=== PATIENT | female | born 1965 | race Caucasian/White ===

== ENCOUNTER 2019-04-07 09:13 | Emergency (ER) | payer OTHER ==
--- NOTE | 2019-04-07 10:16 | ED Physician Documentation ---
History of Present Illness - Stated complaint Stated Complaint: L ARM PX - Chief complaint Chief Complaint: Ext Problem - History obtained from History obtained from: Patient, Family - History of Present Illness Timing: Yesterday - Additonal information Additional information: 54-year-old female has developed some pain in her left arm and shoulder over the past 2 days. She states that when she moves her arm a certain way she feels the same pain more significantly and she does feel that her arm is a bit weaker than normal. She denies any excessive repetitive activity and she does have a prior history of bilateral carpal tunnel. She does have some pain in her neck and she does have an increase in her symptoms with exertion. She is concerned about the possibility of something wrong with her heart as she has a history of hypertension and elevated cholesterol. Review of Systems Constitutional: denies: Fever, Chills Eyes: denies: Decreased vision Ears: denies: Ear pain Nose: denies: Rhinorrhea / runny nose, Congestion Throat: denies: Sore throat Cardiac: denies: Chest pain / pressure, Palpitations Respiratory: denies: Dyspnea, Cough GI: denies: Abdominal Pain, Nausea, Vomiting : denies: Dysuria, Frequency Skin: denies: Rash Musculoskeletal: reports: Neck pain, Extremity pain. denies: Back pain Neurologic: reports: Focal weakness. denies: Generalized weakness, Numbness, Difficulty speaking PD PAST MEDICAL HISTORY - Past Medical History Cardiovascular: Hypertension, High cholesterol Respiratory: None Neuro: Migraines Endocrine/Autoimmune: HyPOthyroidism GI: Ulcers [employer]: None : None Psych: None Musculoskeletal: Other Derm: None Other Past Medical History: sciatica - Past Surgical History Past Surgical History: No - Present Medications Home Medications: Ambulatory Orders Medication Instructions Recorded Confirmed Levothyroxine Sodium [Synthroid] 50 mcg PO DAILY 04/07/19 04/07/19 Lisinopril 20 mg PO DAILY 04/07/19 04/07/19 - Allergies Allergies/Adverse Reactions: Allergies Allergy/AdvReac Type Severity Reaction Status Date / Time No Known Drug Allergies Allergy Verified 04/07/19 09:27 - Social History Does the pt smoke?: No Smoking Status: Never smoker Does the pt drink ETOH?: Yes ETOH Use: Liquor Does the pt have substance abuse?: No - Immunizations Immunizations are current?: Yes - POLST Patient has POLST: No PD ED PE NORMAL - Vitals Vital signs reviewed: Yes (hypertensive m) - General General: Alert and oriented X 3, No acute distress, Well developed/nourished - HEENT HEENT: Atraumatic, PERRL, EOMI - Neck Neck: Supple, no meningeal sign, No bony TTP, Other (There is no increase in the pain associated with axial compression of the spine by compression on the vertex. There is some tenderness to the para spinous muscles on the left neck. 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, No motor deficit, No sensory deficit, Normal speech Eye Opening: Spontaneous Motor: Obeys Commands Verbal: Oriented GCS Score: 15 - Psych Psych: Normal mood, Normal affect Results - Vitals Vitals: Vital Signs - 24 hr 04/07/19 04/07/19 04/07/19 09:24 09:49 11:22 Temperature 36.3 C L 36.6 C 37.0 C Heart Rate 85 74 72 Respiratory 19 16 14 Rate Blood Pressure 158/93 H 148/80 H 133/85 H O2 Saturation 99 97 94 Oxygen O2 Source Room air - EKG (time done) 0931 Rate: Rate (enter#) (74) Rhythm: NSR QRS: LVH Compare to prior EKG: Old EKG unavailable Computer interpretation: Agree with computer - Labs Labs: Laboratory Tests 04/07/19 04/07/19 04/07/19 10:30 10:30 10:30 WBC 4.0 L RBC 4.75 Hgb 14.4 Hct 43.1 MCV 90.7 MCH 30.3 MCHC 33.4 RDW 13.3 Plt Count 235 MPV 10.7 Neut # (Auto) 2.4 Lymph # (Auto) 1.1 L [place] # (Auto) 0.5 Eos # (Auto) 0.0 Baso # (Auto) 0.1 Absolute Nucleated RBC 0.00 Nucleated RBC % 0.0 Sodium 142 Potassium 3.9 Chloride 107 Carbon Dioxide 23 Anion Gap 12.0 BUN 15 Creatinine 0.7 Estimated GFR (MDRD) 87 L Glucose 105 H Calcium 9.8 Total Bilirubin 0.6 AST 20 ALT 16 Alkaline Phosphatase 71 Troponin I < 0.04 Total Protein 7.8 Albumin 4.5 Globulin 3.3 Albumin/Globulin Ratio 1.4 Lipase 34 PD MEDICAL DECISION MAKING - ED course Complexity details: reviewed results, re-evaluated patient, considered differential, d/w patient, d/w family ED course: 54-year-old female with some numbness and pain to the left arm is concerned about the possibility of coronary disease associated with her symptoms. She has a normal-appearing letter cardiogram normal troponin and her pain appears to be related to movement of the arm and I suspect it is more related to her cervical spine. She does have carpal tunnel but I suspect she has had this all along without this pain in her shoulder. She is diagnosed with cervical radiculopathy and treated with dexamethasone. Departure - Departure Disposition: 01 Home, Self Care Clinical Impression: Cervical radiculopathy Condition: Stable Instructions: ED Cervical Radiculopathy Follow-Up: Faith Coe ARNP [Primary Care Provider] - Discharge Date/Time: 04/07/19 11:25
[2019-04-07] MEDS ORDERED: CHERRY SYRUP 10 ML UDC PO ONE (10:17)
[2019-04-07] MEDS ORDERED: DEXAMETHASONE 10 MG/ML VIAL PO STA (10:17)
[2019-04-07 10:36] LABS: BASOPHILS # (AUTO) 0.1 10^3/uL (0.0-0.1); BASOPHILS % (AUTO) 1.5 %; EOSINOPHILS % (AUTO) 0.5 %; HGB - HEMOGLOBIN 14.4 g/dL (12.0-16.0); LYMPHOCYTES # (AUTO) 1.1 10^3/uL (1.5-3.5); LYMPHOCYTES % (AUTO) 26.4 %; MEAN CORPUSCULAR HEMOGLOBIN 30.3 pg (27.0-31.0); MEAN CORPUSCULAR HGB CONC 33.4 g/dL (32.0-36.0); MEAN CORPUSCULAR VOLUME 90.7 fL (81.0-99.0); MEAN PLATELET VOLUME 10.7 fL (7.9-10.8); MONOCYTES # (AUTO) 0.5 10^3/uL (0.0-1.0); MONOCYTES % (AUTO) 11.3 %; NEUTROPHILS # (AUTO) 2.4 10^3/uL (1.5-6.6); PLT - PLATELET COUNT 235 10^3/uL (130-450); RED BLOOD COUNT 4.75 10^6/uL (4.20-5.40); RED CELL DISTRIBUTION WIDTH 13.3 % (12.0-15.0)
[2019-04-07 10:50] LABS: ALBUMIN 4.5 g/dL (3.2-5.5); ALBUMIN/GLOBULIN RATIO 1.4 (1.0-2.2); BILIRUBIN,TOTAL 0.6 mg/dL (0.2-1.0); CALCIUM 9.8 mg/dL (8.5-10.3); CREATININE 0.7 mg/dL (0.4-1.0); TOTAL PROTEIN 7.8 g/dL (6.7-8.2)
[2019-04-07 11:23] VITALS: BP 133/85
== END 2019-04-07 11:25 | disposition home or self-care (01) ==
LOC: ED 09:13
DX: M54.12 Radiculopathy, cervical region (principal); I10 Essential (primary) hypertension
CPT/HCPCS: 36415; 80053; 83690; 84484; 85025; 93005; 99283; 99284; A9270

== ENCOUNTER 2022-06-17 13:02 | Outpatient (CLI) | payer OTHER ==
--- NOTE | 2022-06-17 14:03 | Ultrasound Report ---
PROCEDURE: Pelvic w/Transvaginal INDICATIONS: POST MENOPAUSAL BLEEDING TECHNIQUE: Real-time scanning was performed of the pelvic organs, with image documentation. Additional endovagi nal scanning was necessary due to incomplete visualization of the adnexal and endometrial structures by transabdominal scanning. COMPARISON: None. FINDINGS: Uterus: Uterus is anteverted and normal in size at 6.9 x 3.5 x 2.3 cm. The myometrium is homogeneou s. The endometrium measures 9 mm in combined thickness. No fibroids seen. Nabothian cysts. Ovaries: The right ovary measures 2.5 x 1.5 x 1 cm, with a calculated ovarian volume of 2 cc. The l eft ovary measures 1.9 x 1.9 x 1.3 cm, with a calculated ovarian volume of 3 cc. The ovaries have a normal sonographic appearance. Less than 12 follicles can be seen in each ovary. No adnexal masses are seen. Other: No pathologic free abdominal or pelvic fluid. IMPRESSION: 1. Endometrium measures 9 mm in this postmenopausal patient with bleeding. -Recommend endometrial biopsy to exclude endometrial carcinoma if not recently performed. 2. Ovaries are within normal limits. Reviewed by: David Cruz MD on 06/17/2022 2:02 PM PDT Approved by: David Cruz MD on 06/17/2022 2:02 PM PDT Station ID: [id number]
== END 2022-06-17 13:03 | disposition home or self-care (01) ==
LOC: DI 13:02
PROVIDERS: ATTEND Nurse Practitioner Family
DX: N95.0 Postmenopausal bleeding (principal)